=== PATIENT | female | born 1955 | race Caucasian/White ===

== ENCOUNTER → 2019-05-30 | Outpatient (CLI) | payer OTHER ==
--- NOTE | 2019-05-30 15:58 | Diagnostic Imaging Report ---
Left hand, 2 views. History: Left fifth digit swelling and pain. Findings: There is mild swelling of the distal left fifth digit. The bones are diffusely osteopenic. There is no evidence of fracture or dislocation. There is diffuse proximal and distal interphalangeal and first carpometacarpal joint space narrowing with subchondral sclerosis. This is more severely affecting the left fifth distal interphalangeal joint with osteophyte formation. There are no visible erosions or periostitis. IMPRESSION: Osteoarthritis of the left hand, most severely affecting the left fifth DIP. Signed by: Andrew Brown on 05/30/2019 3:55 PM
--- NOTE | 2019-06-06 09:15 | Diagnostic Imaging Report ---
#[id number] - [id number] #BILATERAL DIGITAL SCREENING MAMMOGRAM WITH CAD: 05/30/2019 CLINICAL: Routine screening. Comparison is made to exam dated: 01/04/2017 mammogram - [facility]. The tissue of both breasts is heterogeneously dense. This may lower the sensitivity of mammography. Current study was also evaluated with a Computer Aided Detection (CAD) system. There are benign calcifications in both breasts. There also is a benign lymph node in the left breast. No significant masses, calcifications, or other findings are seen in either breast. There has been no significant interval change. IMPRESSION: BENIGN There is no mammographic evidence of malignancy. A 1 year screening mammogram is recommended. The patient will be notified by letter of the results. ALFRED salazar/silvia:06/03/2019 16:08:45 Oriental Medicine Practitioner: Veronica CHISHOLM(Emile)(Spenser), [facility] letter sent: Compared to Prior B9 Mammogram BI-RADS: 2 Benign
== END ==
LOC: MAMMO 14:22
PROVIDERS: ATTEND Internal Medicine
DX: Z12.31 Encounter for screening mammogram for malignant neoplasm of breast (principal); M79.645 Pain in left finger(s); M19.042 Primary osteoarthritis, left hand; M79.89 Other specified soft tissue disorders
CPT/HCPCS: 77067

== ENCOUNTER 2020-05-27 11:45 | Emergency (ER) | payer OTHER ==
[~2020-05-27] VITALS: Ht 162.6 cm; Wt 104.3 kg
[2020-05-27] MEDS ORDERED: HYDROCODONE/APAP 7.5MG-325MG 1 EA TAB PO STA (12:22)
[2020-05-27] MEDS ORDERED: KETOROLAC TROMETHAMINE 60 MG/2 ML VIAL IM ONE (12:30)
--- NOTE | 2020-05-27 13:54 | Diagnostic Imaging Report ---
Examination: 1. Left shoulder, 2 views 2. Left humerus, 2 views INDICATION: ^pain/fall ^[id number] ^1320 Comparison: None available. Discussion: There is a comminuted fracture of the left proximal humeral head. Transverse component to the fracture is noted with mild compression. There is also a vertically oriented fracture of the greater tuberosity with mild displacement. Additional smaller fracture fragments are identified. Negative for dislocation. Acromio clavicular joint is intact. Partially visualized elbow joint is in proper articulation. IMPRESSION: Comminuted fracture of the left humeral head with a transverse component and a large slightly displaced fragment involving the greater tuberosity. Additional smaller fragments are identified. Signed by: Damian Fernández MD on 05/27/2020 1:50 PM
--- NOTE | 2020-05-27 13:56 | Diagnostic Imaging Report ---
TECHNIQUE: Frontal view of the chest. INDICATION: ^[id number] ^1320 COMPARISON: None DISCUSSION: Limited evaluation due to portable technique. Lines and hardware: Overlying EKG leads noted. Heart and mediastinum: Cardiomediastinal silhouette is within normal limits. Mild central vascular congestion is noted. Lungs and pleura: No focal airspace consolidation. No pleural effusion. No pneumothorax. Mildly prominent interstitial markings are noted. Soft tissues and bones: No acute abnormality. IMPRESSION: Mild central vascular congestion and prominent interstitial markings can be seen in patients with fluid overload. Negative for focal infiltrate or pleural effusions. Signed by: Damian Fernández MD on 05/27/2020 1:52 PM
[2020-05-27] MEDS ORDERED: MOTRIN800 MG PO (14:25)
[2020-05-27] MEDS ORDERED: ULTRAM50 MG PO (14:25)
--- NOTE | 2020-05-27 14:26 | Emergency Department Note ---
History of Present Illnes History of Present Illness Chief Complaint: left shoulder pain s/p slip and fall History of Present Illness This is a 65 year old female . Historian: Patient Arrival Mode: Car History limited by: condition of the patient (normal) Control Officer Manager Required: No Onset (how long ago): hour(s) (1) Location: see above Quality: n/a Radiation: Reports non-radiation Severity: severe Onset quality: sudden Duration (how long): hour(s) (1) Timing of current episode: constant Progression: unchanged Chronicity: new Context: Reports trauma/injury; Denies recent illness, Denies recent surgery, Denies recent immobilization, Denies recent travel, Denies new medications, Denies hx of DVT/PE, Denies non- compliance w/ medications Relieving factors: none Exacerbating factors: none, movement Treatments prior to arrival: none Past Medical/Family History Physician Review I have reviewed the patient's past medical and family history. Any updates have been documented here. Past Medical History Recent Fever: No Clinical Suspicion of Infectio: No New/Unexplained Change in Ment: No Past Medical History: Hypertension Other Medical History: restless legs syndrome Past Surgical History: Cholecysctectomy, Appendectomy, Hysterectomy, Back Surgery Other Surgery: lumbar surgery, right achilles repair, bladder sling due to prolapse Social History Smoking Cessation: Former smoker Alcohol Use: Social Any Illegal Drug Use: No TB Exposure/Symptoms: No Physically hurt or threatened: No Family History Family history of heart diseas: No Other Any Pre-Existing Lines (PICC,: No Is patient up to date on immun: No Review of Systems Review of Systems Constitutional: Reports no symptoms EENTM: Reports no symptoms Cardiovascular: Reports no symptoms Respiratory: Reports no symptoms Gastrointestinal: Reports no symptoms Genitourinary: Reports no symptoms Musculoskeletal: Reports as per HPI Integumentary: Reports no symptoms Neurological: Reports no symptoms Psychological: Reports no symptoms Endocrine: Reports no symptoms Hematological/Lymphatic: Reports no symptoms Review of other systems: All other systems negative Physical Exam Related Data Allergies: Coded Allergies: No Known Allergies (Unverified , 05/27/20) Triage Vital Signs Vital Signs Date Time Temp Pulse Resp B/P (MAP) Pulse Ox O2 Delivery O2 Flow Rate FiO2 05/27/20 11:52 98.3 71 22 166/99 98 Room Air Vital signs reviewed: Yes Physical Exam CONSTITUTIONAL Constitutional: Present well-developed, Present well-nourished HENT HENT: Present normocephalic, Present atraumatic, Present oropharynx clear/moist, Present nose normal HENT L/R: Present left ext ear normal, Present right ext ear normal EYES Eyes: Reports PERRL, Reports conjunctivae normal NECK Neck: Present ROM normal PULMONARY Pulmonary: Present effort normal, Present breath sounds normal CARDIOVASCULAR Cardiovascular: Present regular rhythm, Present heart sounds normal, Present capillary refill normal, Present normal rate GASTROINTESTINAL Abdominal: Present soft, Present nontender, Present bowel sounds normal GENITOURINARY Genitourinary: Present exam deferred SKIN Skin: Present warm, Present dry MUSCULOSKELETAL Musculoskeletal: Present tenderness (left shoulder/ decreased farom/ +nvi) NEUROLOGICAL Neurological: Present alert, Present oriented x 3, Present no gross motor or sensory deficits PSYCHOLOGICAL Psychological: Present mood/affect normal, Present judgement normal Results Imaging Imaging results reviewed: Yes Impressions [place] [id number] Patient Name: JAVIER CHARLES MR #: [id number] : 1955 Age/Sex: 65/F Req #: [id number] Adm Physician: Ordered by: BINTA ARNETT Report #: [id number] Location: ER Room/Bed: Procedure: [id number] DX/SHOULDER LEFT COMPLETE Exam Date: 05/27/20 Exam Time: 132 REPORT STATUS: Signed Examination: 1. Left shoulder, 2 views 2. Left humerus, 2 views INDICATION: ^pain/fall ^[id number] ^132 Comparison: None available. Discussion: There is a comminuted fracture of the left proximal humeral head. Transverse component to the fracture is noted with mild compression. There is also a vertically oriented fracture of the greater tuberosity with mild displacement. Additional smaller fracture fragments are identified. Negative for dislocation. Acromio clavicular joint is intact. Partially visualized elbow joint is in proper articulation. IMPRESSION: Comminuted fracture of the left humeral head with a transverse component and a large slightly displaced fragment involving the greater tuberosity. Additional smaller fragments are identified. Signed by: Zina Lebron MD on 05/27/2020 1:50 PM Dictated By: ZINA LEBRON MD 1350 Transcribed By: USHA on 05/27/20 1350 COPY TO: BINTA ARNETT~ Assessment & Plan Medical Decision Making MDM sprain, fracture Assessment & Plan Final Impression: (1) Humeral head fracture Depart Disposition: HOME, SELF-CARE Last Vital Signs Date Time Temp Pulse Resp B/P (MAP) Pulse Ox O2 Delivery O2 Flow Rate FiO2 05/27/20 13:10 69 18 144/85 99 Room Air 05/27/20 11:52 98.3 Home Meds Active Scripts Tramadol Hcl (ULTRAM) 50 Mg Tablet, 50 MG PO Q4HR PRN for MODERATE PAIN (4-6), #40 TAB take after ibuprofen to control pain Prov:BINTA ARNETT 05/27/20 Ibuprofen (MOTRIN) 800 Mg Tab, 800 MG PO Q6H PRN for MODERATE PAIN (4-6), #40 TAB Prov:BINTA ARNETT 05/27/20 Medications in the ED Ketorolac Tromethamine 60 mg ONCE ONCE IM Last administered on 05/27/20at 13:40; Admin Dose 60 MG; Start 05/27/20 at 12:30; Stop 05/27/20 at 12:31; Status DC Acetaminophen/ Hydrocodone Bitart 1 ea ONCE STAT PO Last administered on 05/27/20at 13:40; Admin Dose 1 EA; Start 05/27/20 at 12:22; Stop 05/27/20 at 12:27; Status DC BINTA ARNETT May 27, 2020 14:26
== END 2020-05-27 15:06 | disposition home or self-care (01) ==
LOC: ER 11:53
DX: S42.292A Other displaced fracture of upper end of left humerus, initial encounter for closed fracture (principal); M25.512 Pain in left shoulder; W18.2XXA Fall in (into) shower or empty bathtub, initial encounter; Y93.E1 Activity, personal bathing and showering; Y92.002 Bathroom of unspecified non-institutional (private) residence as the place of occurrence of the external cause; I10 Essential (primary) hypertension
CPT/HCPCS: 29240; 71045; 73030; 73060; 99283; J1885

== ENCOUNTER → 2024-05-12 | Outpatient (REF) | payer MEDICARE ==
[~2024-05-12] MED LIST: MOTRIN800 MG PO; ULTRAM50 MG PO
== END ==
LOC: RAD 11:36
PROVIDERS: ATTEND Neurological Surgery
DX: M43.16 Spondylolisthesis, lumbar region (principal); M43.27 Fusion of spine, lumbosacral region
CPT/HCPCS: 72110

== ENCOUNTER → 2024-10-16 | Outpatient (REF) | payer MEDICARE | LOC: MAMMO 09:11 | PROVIDERS: ATTEND Internal Medicine | DX: Z12.31 Encounter for screening mammogram for malignant neoplasm of breast (principal) | CPT/HCPCS: 77067 ==

== ENCOUNTER → 2024-10-23 | Outpatient (REF) | payer MEDICARE | LOC: MRI 11:01 | PROVIDERS: ATTEND Student in an Organized Health Care Education/Training Program | DX: M96.1 Postlaminectomy syndrome, not elsewhere classified (principal); M51.362 Other intervertebral disc degeneration, lumbar region with discogenic back pain and lower extremity pain | CPT/HCPCS: 72148 ==

== ENCOUNTER → 2025-04-20 | Outpatient (REF) | payer MEDICARE | LOC: CT 14:37 | PROVIDERS: ATTEND Orthopaedic Surgery Orthopaedic Surgery of the Spine | DX: Z98.1 Arthrodesis status (principal) | CPT/HCPCS: 72114; 72128; 72170 ==

== ENCOUNTER → 2025-05-01 | Outpatient (REF) | payer MEDICARE | LOC: CARD 09:04 | PROVIDERS: ATTEND Internal Medicine | DX: R26.89 Other abnormalities of gait and mobility (principal); H51.9 Unspecified disorder of binocular movement | CPT/HCPCS: 93880 ==